=== PATIENT | female | born 1985 | race Caucasian/White ===

== ENCOUNTER 2017-05-30 09:13 | Emergency (ER) | payer OTHER ==
[~2017-05-30] VITALS: Ht 157.5 cm; Wt 136.5 kg
[~2017-05-30 09:13] MED LIST: PRT/40 PO; VNTHFA/IN INH
[2017-05-30 09:19] VITALS: TEMP 37; Ht 157.5 cm; Wt 136.5 kg
[2017-05-30] MEDS ORDERED: SODIUM CHLORIDE 0.9% 500ML 500 ML IV STA (09:46)
[2017-05-30] MEDS ORDERED: KETOROLAC TROMETHAMINE 30 MG/ML VIAL IV STA (09:46)
[2017-05-30 10:16] LABS: BASO % 0.3 %; BASO ABS # 0.02 K/uL (0-0.2); COMPLETE YES; EOS % 2.4 %; HEMATOCRIT 40.5 % (37-47); IG% 0.2 %; LYMPH % 43.1 %; LYMPH ABS # 2.73 K/uL (1.2-3.4); MEAN CELL VOLUME 91.2 fL (80-100); MEAN CORPUSCULAR HEMOGLOBIN 32.7 pg (25-34); MEAN CORPUSCULAR HGB CONC 35.8 g/dl (32-36); MEAN PLATELET VOLUME 11.4 fL (7.4-10.4); MONO % 6.9 %; NEUT % 47.1 %; PLATELET COUNT 233 K/uL (130-400); RED BLOOD COUNT 4.44 M/uL (4.2-5.4); WHITE BLOOD COUNT 6.34 K/uL (4.8-10.8)
[2017-05-30 10:32] LABS: BUN/CREATININE RATIO 15.2 (10-20); CALCIUM 9.3 mg/dl (8.5-10.1); CREATININE 0.75 mg/dl (0.60-1.20); POTASSIUM 4.2 mmol/L (3.5-5.1)
--- NOTE | 2017-05-30 10:35 | DIAGNOSTIC IMAGING REPORT ---
L RIBS UNILATERAL WITH PA CHEST HISTORY: 32 years-old Female L rib pain acute left-sided rib pain without reported trauma. COMPARISON: Chest radiograph 06/21/2016 TECHNIQUE: Frontal view of the chest with 5 views of the left ribs FINDINGS: Cardiomediastinal and hilar silhouettes are within normal limits. No pneumothorax, pleural effusion or focal airspace consolidation. No overt pulmonary edema. There is widening of the right AC joint, 1.8 cm, unchanged. No acute rib fracture identified. IMPRESSION: 1. No acute cardiopulmonary process. 2. No acute rib fracture identified. No pneumothorax. The above report was generated using voice recognition software. It may contain grammatical, syntax or spelling errors. Electronically signed by: Jim Shin M.D. 05/30/2017 10:33 AM Dictated Date/Time: 05/30/2017 10:31 AM
[2017-05-30 12:27] VITALS: BP 103/83; PULSE 72; O2SAT 96
--- NOTE | 2017-05-30 14:07 | EMERGENCY ROOM VISIT NOTE ---
History Report prepared by Arina: Roopa Holland Under the Supervision of: Dr. Dalton Rivera D.O. First contact with patient: 09:29 Chief Complaint: RIB PAIN Stated Complaint: LEFT RIB PAIN & LUMP BETWEEN FINGERS AND NUMBNESS History of Present Illness The patient is a 32 year old female who presents to the Emergency Room with complaints of worsening left lower back pain for the past 4 days. She states that her pain began suddenly and she was not doing anything when it started. She states that it feels like she broke a rib. She denies any recent trauma or injury. Twisting, turning, bending, and deep inspiration exacerbates her pain. The patient rates her current pain as a 7/10 in severity. She denies any trouble walking and states that she just feels stiff. The patient denies weakness or numbness in her groin or extremities, incontinence, chest pain, shortness of breath, cough, urinary symptoms, and abdominal pain. The patient also reports a lump in her right hand that makes her right 4th finger numb. Source of History: patient Onset: 4 days ago Position: back (lower) Symptom Intensity: 7/10 Timing: worsening Modifying Factors (Worsening): breathing, movement Associated Symptoms: No cough, No chest pain, No SOB, No abdominal pain, No urinary symptoms, No weakness, No numbness Review of Systems See HPI for pertinent positives & negatives. A total of 10 systems reviewed and were otherwise negative. Past Medical & Surgical Medical Problems: (1) Ankle sprain (2) Asthma (3) Asthma exacerbation (4) Chest cold (5) Foot sprain Surgical Problems: (1) H/O: hysterectomy Family History Cancer Diabetes mellitus FH: gallbladder disease FH: lung disease Heart disease Hypertension Kidney disease Kidney stones Social History Smoking Status: Current Every Day Smoker Alcohol Use: none Drug Use: none Marital Status: Housing Status: lives with family Occupation Status: employed Current/Historical Medications Scheduled Albuterol Hfa (Ventolin Hfa), 2 PUFF INH prn ud Scheduled PRN Pantoprazole (Pantoprazole Sodium), 40 MG PO DAILY PRN for Dyspepsia Allergies Coded Allergies: Oxycodone (Verified Allergy, Intermediate, PRURITUS W/ OXYCONTIN (OK W/ PERCOCET), 05/30/17) Pramipexole (Verified Allergy, Intermediate, leg pain, 05/30/17) Shellfish (Verified Allergy, Intermediate, throat swelling, 05/30/17) Venlafaxine (Verified Allergy, Intermediate, SEVERE YAWNING, 05/30/17) Penicillins (Verified Allergy, Mild, AMOXICILLIN-HIVES, 05/30/17) Hydrocodone (Verified Allergy, Unknown, NAUSEA, 05/30/17) Nickel (Verified Allergy, Unknown, RASH REDNESS, 05/30/17) Varenicline (Verified Allergy, Unknown, CHANTIX-MOOD ISSUES, 05/30/17) Physical Exam Vital Signs Date Time Temp Pulse Resp B/P (MAP) Pulse Ox O2 Delivery O2 Flow Rate FiO2 05/30/17 12:27 72 18 103/83 96 05/30/17 11:15 68 18 103/83 96 Room Air 05/30/17 09:19 37.0 72 18 119/72 98 Room Air Physical Exam GENERAL: alert, morbidly obese, sitting up in chair, talking in full sentences, well appearing, well nourished, no distress, non-toxic EYE EXAM: normal conjunctiva OROPHARYNX: no exudate, no erythema, lips, buccal mucosa, and tongue normal and mucous membranes are moist NECK: supple, no nuchal rigidity, no adenopathy, non-tender LUNGS: Clear to auscultation. Normal chest wall mechanics HEART: no murmurs, S1 normal and S2 normal ABDOMEN: abdomen soft, non-tender, normo-active bowel sounds, no masses, no rebound or guarding. BACK: Back is symmetrical on inspection and there is no deformity. Left lower thoracic TTP on the lateral ribs, worsens with twisting, turning, bending. No midline tenderness, no step-offs, no deformities. SKIN: no rashes and no bruising UPPER EXTREMITIES: Right upper extremity with a small nodule in the webbing between the 5th and 4th digits, no erythema, skin intact. LOWER EXTREMITIES: No pitting edema. Flexion/extension of hip, knee, ankle, EHL 5/5 bilaterally. Able to ambulate without difficulty. NEURO EXAM: Normal sensorium, cranial nerves II-XII grossly intact, normal speech, no gross weakness of arms, no gross weakness of legs. Medical Decision & Procedures ER Provider Diagnostic Interpretation: Radiology results as stated below per my review and the radiologist's interpretation: L RIBS UNILATERAL WITH PA CHEST HISTORY: 32 years-old Female L rib pain acute left-sided rib pain without reported trauma. COMPARISON: Chest radiograph 06/21/2016 TECHNIQUE: Frontal view of the chest with 5 views of the left ribs FINDINGS: Cardiomediastinal and hilar silhouettes are within normal limits. No pneumothorax, pleural effusion or focal airspace consolidation. No overt pulmonary edema. There is widening of the right AC joint, 1.8 cm, unchanged. No acute rib fracture identified. IMPRESSION: 1. No acute cardiopulmonary process. 2. No acute rib fracture identified. No pneumothorax. The above report was generated using voice recognition software. It may contain grammatical, syntax or spelling errors. Electronically signed by: Jim Shin M.D. 05/30/2017 10:33 AM Dictated Date/Time: 05/30/2017 10:31 AM Laboratory Results 05/30/17 10:00 Red Blood Count 4.44, Mean Corpuscular Volume 91.2, Mean Corpuscular Hemoglobin 32.7, Mean Corpuscular Hemoglobin Concent 35.8, Mean Platelet Volume 11.4, Neutrophils (%) (Auto) 47.1, Lymphocytes (%) (Auto) 43.1, Monocytes (%) (Auto) 6.9, Eosinophils (%) (Auto) 2.4, Basophils (%) (Auto) 0.3, Neutrophils # (Auto) 2.99, Lymphocytes # (Auto) 2.73, Monocytes # (Auto) 0.44, Eosinophils # (Auto) 0.15, Basophils # (Auto) 0.02 05/30/17 10:00 Test 05/30/17 10:00 White Blood Count 6.34 K/uL (4.8-10.8) Red Blood Count 4.44 M/uL (4.2-5.4) Hemoglobin 14.5 g/dL (12.0-16.0) Hematocrit 40.5 % (37-47) Mean Corpuscular Volume 91.2 fL (80-100) Mean Corpuscular Hemoglobin 32.7 pg (25-34) Mean Corpuscular Hemoglobin Concent 35.8 g/dl (32-36) Platelet Count 233 K/uL (130-400) Mean Platelet Volume 11.4 fL (7.4-10.4) Neutrophils (%) (Auto) 47.1 % Lymphocytes (%) (Auto) 43.1 % Monocytes (%) (Auto) 6.9 % Eosinophils (%) (Auto) 2.4 % Basophils (%) (Auto) 0.3 % Neutrophils # (Auto) 2.99 K/uL (1.4-6.5) Lymphocytes # (Auto) 2.73 K/uL (1.2-3.4) Monocytes # (Auto) 0.44 K/uL (0.11-0.59) Eosinophils # (Auto) 0.15 K/uL (0-0.5) Basophils # (Auto) 0.02 K/uL (0-0.2) RDW Standard Deviation 47.6 fL (36.4-46.3) RDW Coefficient of Variation 14.2 % (11.5-14.5) Immature Granulocyte % (Auto) 0.2 % Immature Granulocyte # (Auto) 0.01 K/uL (0.00-0.02) D-Dimer 310 ug/L FEU (0-500) Anion Gap 5.0 mmol/L (3-11) Est Creatinine Clear Calc Drug Dose 146.6 ml/min Estimated GFR () 124.0 Estimated GFR (Non- 107.0 BUN/Creatinine Ratio 15.2 (10-20) Calcium Level 9.3 mg/dl (8.5-10.1) Laboratory results per my review. Medications Administered Medications (Trade) Dose Ordered Sig/Dominic Route Start Time Stop Time Status Last Admin Dose Admin Sodium Chloride 500 ml @ 999 mls/hr Q31M STAT IV 05/30/17 09:46 05/30/17 10:16 DC 05/30/17 10:06 999 MLS/HR Ketorolac Tromethamine (Toradol Inj) 30 mg NOW STAT IV 05/30/17 09:46 05/30/17 09:49 DC 05/30/17 10:07 30 MG ED Course ED COURSE: Vital signs were reviewed and showed normal vitals. The patients medical record was reviewed The above diagnostic studies were performed and reviewed. ED treatments and interventions as stated above. 0929: The patient was evaluated in room B6. A complete history and physical examination was performed. 0946: Toradol 30 mg IV, NSS 500 ml @ 999 mls/hr IV 1209: Upon reevaluation, the patient is feeling better and sitting up in bed. I discussed my findings with the patient and she understands and agrees with the treatment plan. Based on the patients age, coexisting illnesses, exam and lab findings the decision to treat as an outpatient was made. The patient remained stable while under my care. The patient appeared well at the time of discharge. Medical Decision Differential diagnoses includes but is not limited to lumbar radiculopathy, muscle strain, facture, cauda equina, mass, and disc herniation. Patient is a 32-year-old female who presents to ER with left lower back/flank pain. On exam she has clear reproducible tenderness in the left mid thoracic area over top of her ribs. No previous trauma. She is a low risk for blood clots. D-dimer was negative. Chest x-ray and ribs show no acute fractures. CBC and BMP were unremarkable. Presentation is not consistent with ACS. Patient was given Toradol and had improvement of her symptoms. Pain significantly worsens with changing positions/twisting turning bending. Discussed with Pt concerning signs and symptoms to watch out for. Pt was instructed to follow up with their PCP and discussed with the patient their option to return to the ED at anytime for persistent or worsening symptoms. The appropriate anticipatory guidance and out-patient management, including indications for return to the emergency department, were explained at length to the patient and understood. Medication Reconcilliation Current Medication List: was personally reviewed by me Blood Pressure Screening Patient's blood pressure: Normal blood pressure Impression Primary Impression: Back pain Additional Impression: Cyst of finger Scribe Attestation The scribe's documentation has been prepared under my direction and personally reviewed by me in its entirety. I confirm that the note above accurately reflects all work, treatment, procedures, and medical decision making performed by me. Departure Information Dispostion Home / Self-Care Referrals Fred Melendrez M.D. (MEDICAL) (PCP) Forms HOME CARE DOCUMENTATION FORM, IMPORTANT VISIT INFORMATION, WORK / SCHOOL INSTRUCTIONS Patient Instructions ED Contusion Vs Minor Fx Rib, My [facility] Additional Instructions Please follow up with your primary care doctor with in the next 24 hours. Any worsening of your symptoms, please return to the ED immediately. This includes any fevers greater than 100.4, worsening pain, chest pain, shortness breath, persistent nausea, vomiting, unable to eat or drink, or any other concerning signs or symptoms from your standpoint. Please take Tylenol and/or Motrin as needed for pain. Problem Qualifiers Primary Impression: Back pain Back pain location: back pain in unspecified location Chronicity: acute Back pain laterality: left Qualified Codes: M54.9 - Dorsalgia, unspecified
== END 2017-05-30 12:27 | disposition home or self-care (01) ==
LOC: C.EDB 09:14
DX: M54.9 Dorsalgia, unspecified (principal); L72.9 Follicular cyst of the skin and subcutaneous tissue, unspecified; J45.909 Unspecified asthma, uncomplicated; Z83.3 Family history of diabetes mellitus; Z82.49 Family history of ischemic heart disease and other diseases of the circulatory system; F17.200 Nicotine dependence, unspecified, uncomplicated

== ENCOUNTER 2018-01-12 18:31 | Emergency (ER) | payer OTHER ==
[~2018-01-12] VITALS: Ht 157.5 cm; Wt 135.8 kg
[~2018-01-12 18:31] MED LIST changes: +PANT40TA2 PO; -PRT/40 PO
[2018-01-12 18:36] VITALS: TEMP 36.9; Ht 157.5 cm; Wt 135.8 kg
[2018-01-12] MEDS ORDERED: DOXYCYCLINE HYCLATE 100 MG CAP PO STA (19:02)
[2018-01-12] MEDS ORDERED: LIDOCAINE 1% BUFFERED INJ 5 ML VIAL INFIL ONE (19:15)
--- NOTE | 2018-01-12 19:48 | EMERGENCY ROOM VISIT NOTE ---
ED Visit Note First contact with patient: 18:50 CHIEF COMPLAINT: Tick bite HISTORY OF PRESENT ILLNESS: This patient is a 32-year-old female that presents to the emergency department with a complaint of a tick in her lower abdomen that she noticed today. She thinks that the tick has been there less than 24 hours. The patient was actually at the dentist. Her dentist tried to remove it. The tick head remains embedded. Her tetanus shot is up-to-date. She describes mild discomfort in the area. No fever or chills. REVIEW OF SYSTEMS: Head: No headache, injury or neck pain. A Neck: No pain , stiffness, or swelling. Neurological: No headache, new changes in mental status, vertigo, focal weakness, numbness. Gastrointestinal: No abdominal pain , blood in stools, diarrhea, loss of appetite, nausea, or vomiting. General: No fever or chills, fatigue, loss of appetite, or significant recent weight gain or loss. PMH: Asthma SOCIAL HISTORY: Patient lives at home. She is a student. She smokes a half pack of cigarettes per day.. PHYSICAL EXAM: Vital Signs: Reviewed Nurse's notes. There is a small zone of inflammation and eccymosis around the spot where the tick head remains embedded.. The skin is otherwise clear. NEUROLOGICAL: Alert and cooperative. Sensory and motor functions grossly intact. COURSE: The patient was seen and examined. The patient was given doxycycline 200 mg by mouth the area was prepped with Betadine. A small wheal was made with 0.5 cc of buffered lidocaine under the tick head. Using a scalpel, the tick head was then easily removed. The patient tolerated the procedure well. She was given a Band-Aid. Discharge instructions were reviewed, and she was discharged in good condition DIAGNOSIS: Tick bite DISCHARGE INSTRUCTIONS & TREATMENT: Watch the area for signs of infection. Please watch for a bull's-eye rash. Other warning signs would be fever, severe headache or joint pain. Please follow-up with your primary care physician as needed, and do not hesitate to return to the emergency department with any new or concerning symptoms It was a pleasure participating in your care today This chart was completed in part utilizing [employer] Voice Recognition software. Attempts were made to minimize the grammatical errors, random word insertions, pronoun errors and incomplete sentences. Any formal questions or concerns about the content, text or information contained within the body of this dictation should be directly addressed to the provider for clarification.
[2018-01-12 20:03] VITALS: BP 122/75; PULSE 71; O2SAT 98
== END 2018-01-12 20:04 | disposition home or self-care (01) ==
LOC: C.EDB 18:32 → C.EDD 20:04
DX: S30.861A Insect bite (nonvenomous) of abdominal wall, initial encounter (principal); W57.XXXA Bitten or stung by nonvenomous insect and other nonvenomous arthropods, initial encounter; F17.210 Nicotine dependence, cigarettes, uncomplicated